=== PATIENT | female | born 1950 | race Caucasian/White ===

== ENCOUNTER → 2018-09-21 | Outpatient (CLI) | payer OTHER ==
[~2018-09-21] MED LIST: CHOL10002 PO; DICL75ER PO; ERGO50000 PO; GLYB2.5 PO; HYDR1TAB94 PO; LISI5 PO; Lovastatin10 MG PO; MAGNESIUM; METF500 PO; [UNRECOGNIZED DRUG - OTHER] PO
== END ==
LOC: LAB SHORT 14:23 → PLD 14:23
DX: L72.3 Sebaceous cyst (principal)
CPT/HCPCS: 88304

== ENCOUNTER 2020-01-02 07:09 | Day surgery (SDC) | payer OTHER ==
[~2020-01-02] VITALS: Ht 154.9 cm; Wt 76.6 kg
[~2020-01-02 07:09] MED LIST changes: +ATOR20; +B Complex-Foli1 EACH; +CALCIUM; +GLIP5 PO; +MELA3; +Prinivil10 MG PO; +VITAMIN D310 MC1
--- NOTE | 2020-01-02 07:53 | NUR ---
History, Chart, Medications and Allergies reviewed before start of procedure. Patient states colon prep results clear. Patient States Post-Procedure ride home has been arranged.
--- NOTE | 2020-01-02 08:02 | NUR ---
01/02/20 0802 Peb[address] Posadas History, Chart, Medications and Allergies reviewed before start of procedure. Patient confirms NPO status and agrees with scheduled surgery. PATIENT DETERMINED TO BE ASA APPROPRIATE FOR PROPOFOL SEDATION PRIOR TO START OF PROCEDURE BY DR. AMBROSIO. 3-LEAD EKG REVIEWED WITH PHYSICIAN PRIOR TO START OF PROCEDURE. MONITOR INTACT WITH CONTINUOUS PULSE OXIMETRY AND INTERMITTENT BP.
--- NOTE | 2020-01-02 08:26 | NUR ---
RECIEVED PATIENT AND REPORT. VSS
--- NOTE | 2020-01-02 09:07 | NUR ---
1052 PT AWAKE AND ORIENTED, Discharge instructions reviewed with patient. Patient verbalizes understanding. Copy given to patient to take home. Patient up to Ambulate independently. Gait steady. Patient States Post-Procedure ride home has been arranged. Discharged via wheelchair to private car for ride home. ALL BELONIGNS RETUNRNED TO PATIENT.
== END 2020-01-02 23:01 | disposition home or self-care (01) ==
LOC: ORSCMMR 07:09 → ORD 08:00 → ORSCMMR 08:00
PROVIDERS: Internal Medicine Gastroenterology
PROC: 0DJD8ZZ Inspection of Lower Intestinal Tract, Via Natural or Artificial Opening Endoscopic (ICD-10-PCS; principal; 2020-01-02 08:00)
DX: Z12.11 Encounter for screening for malignant neoplasm of colon (principal); K57.30 Diverticulosis of large intestine without perforation or abscess without bleeding; K64.4 Residual hemorrhoidal skin tags; E11.9 Type 2 diabetes mellitus without complications; I10 Essential (primary) hypertension; E78.00 Pure hypercholesterolemia, unspecified; Z79.84 Long term (current) use of oral hypoglycemic drugs; Z79.899 Other long term (current) drug therapy
CPT/HCPCS: 82947; J2704; J7120

== ENCOUNTER → 2022-06-18 | Outpatient (CLI) | payer OTHER | LOC: LAB SHORT 08:09 → LAB 08:09 | DX: D22.5 Melanocytic nevi of trunk (principal) | CPT/HCPCS: 88305 ==

== ENCOUNTER → 2022-12-16 | Outpatient (CLI) | payer OTHER | END | disposition home or self-care (01) | LOC: LAB 14:05 → LAB SHORT 14:05 | DX: E11.9 Type 2 diabetes mellitus without complications (principal) | CPT/HCPCS: 82043 ==

== ENCOUNTER → 2023-07-02 | Outpatient (CLI) | payer OTHER ==
[2023-07-02 18:31] LABS: Creatinine, Urine Random 25.3 mg/dL (27.00-270.00); Microalbumin, Random Urine 20.3 mg/L (0.000-20.000)
== END ==
LOC: LAB SHORT 16:32 → LAB 16:32
PROVIDERS: Physician Assistant
DX: E11.59 Type 2 diabetes mellitus with other circulatory complications (principal); E11.36 Type 2 diabetes mellitus with diabetic cataract; E11.69 Type 2 diabetes mellitus with other specified complication
CPT/HCPCS: 82043; 82570